=== PATIENT | female | born 1930 | race Two or more races ===

== ENCOUNTER 2018-10-04 02:56 | Emergency (ER) | payer MEDICARE, OTHER ==
[~2018-10-04] VITALS: Ht 175.3 cm; Wt 64.4 kg
[2018-10-04 03:13] VITALS: BP 201/92
--- NOTE | 2018-10-04 03:14 | NUR ---
PT RUBY. C/O "HAD GLF IN BATHROOM, FELL ON SACRUM. UNABLE TO GET UP" - SOB NOTED. -TRAUMA. AOX4. VSS
== END 2018-10-04 04:04 | disposition home or self-care (01) ==
LOC: ER 02:58
DX: L89.151 Pressure ulcer of sacral region, stage 1 (principal); W18.11XA Fall from or off toilet without subsequent striking against object, initial encounter; Y93.89 Activity, other specified; Y92.091 Bathroom in other non-institutional residence as the place of occurrence of the external cause; Y99.8 Other external cause status